=== PATIENT | female | born 1940 | race Caucasian/White ===

== ENCOUNTER 2021-08-18 14:40 | Inpatient (IN) | payer OTHER ==
[~2021-08-18] VITALS: Ht 152.4 cm; Wt 54.9 kg
[~2021-08-18 14:40] MED LIST: ASPIRIN EC325 MG PO; ASPIRIN LOW DOSE 81M PO; LIPITOR10 MG PO; LISINOPRIL-HCT1 EAC1 PO; ORENCIA 25250 MG/VIA IV; TRAMADOL 50 MG50 MG PO; VITAMIN D 5050000 I1 PO
[2021-08-18 14:47] VITALS: BP 184/46
[2021-08-18] MEDS ORDERED: LIPITOR10 MG PO (14:50)
[2021-08-18] MEDS ORDERED: ZESTRIL20 MG PO (14:50)
[2021-08-18] MEDS ORDERED: PROLIA60 MG/1 ML SUBQ (14:51)
[2021-08-18 17:02] LABS: ABSOLUTE LYMPHOCYTES 1.2 thou/uL (0.8-5.3); ABSOLUTE MONOCYTES 0.5 thou/uL (0.0-1.2); ABSOLUTE NEUTROPHILS 4.4 thou/uL (1.6-8.1); BASOPHILS 0.5 %; EOSINOPHILS 0.5 %; LYMPHOCYTES 19.9 %; MCH 26.5 pg (26.0-34.0); MCHC 33.3 g/dL (28.0-37.0); MCV 79.4 fL (80.0-100.0); MONOCYTES 7.4 %; MPV 8.1 fl. (7.2-11.1); NUCLEATED RBCS 0 /100WBC; PLATELET COUNT* 139 thou/uL (150-400); POLYS 71.7 %; RBC 4.91 mil/uL (4.20-5.00); RDW-CV 14.4 % (10.5-14.5); WBC 6.1 thou/uL (4.0-11.0)
[2021-08-18 17:14] LABS: CALCIUM 8.8 mg/dL (8.5-10.1); CREATININE 0.8 mg/dL (0.6-1.3); POTASSIUM 3.5 mmol/L (3.5-5.1)
[2021-08-18 17:30] LABS: ALBUMIN 3.8 g/dL (3.4-5.0); TOTAL BILIRUBIN 0.9 mg/dL (<0.1-1.0); TOTAL PROTEIN 7.7 g/dL (6.4-8.2)
[2021-08-18 21:00] VITALS: BP 229/84
[2021-08-19 01:00] VITALS: BP 177/59
[2021-08-19 05:00] VITALS: BP 179/57
[2021-08-19 06:20] LABS: HEMATOCRIT 36.7 % (37.0-47.0); HEMOGLOBIN 12.2 gm/dL (12.0-15.0); MCH 26.4 pg (26.0-34.0); MCHC 33.3 g/dL (28.0-37.0); MCV 79.4 fL (80.0-100.0); MPV 8.2 fl. (7.2-11.1); RBC 4.62 mil/uL (4.20-5.00); RDW-CV 14.2 % (10.5-14.5); WBC 4.3 thou/uL (4.0-11.0)
[2021-08-19 06:35] LABS: ALBUMIN 2.9 g/dL (3.4-5.0); CREATININE 0.8 mg/dL (0.6-1.3); POTASSIUM 3.7 mmol/L (3.5-5.1); TOTAL BILIRUBIN 0.7 mg/dL (<0.1-1.0); TOTAL PROTEIN 6.3 g/dL (6.4-8.2)
[2021-08-19 10:50] VITALS: BP 180/67
[2021-08-19 13:00] VITALS: BP 158/56
--- NOTE | 2021-08-19 13:45 | NUR ---
PT BROUGHT OVER FROM ER TO PREOP BAY E TO BOARD. PT MAY POSSIBLY HAVE SURGERY, [facility]SI HAS BEEN CONSULTED. PT IS AXOX4. PT DENIES PAIN AT TIME OF PRE OP CHECKLIST. DAUGHTER VENESSA ACCOMPANIED PT AND IS ABLE TO PROVIDE HISTORY. PT HAS ERYTHEMA NOTED TO HER RIGHT MIDDLE FINGER, IT IS SWOLLEN AND WARM, AND SHE IS UNABLE TO BEND THE FINGER AT ALL. PT HAS HX OF RA AND LUPUS, PER HER DAUGHTER, SHE HAS HAD SILICONE INJECTIONS IN HER HANDS FOR HER RA/LUPUS. PT INFORMED THAT WE WILL NEED TO KEEP HER NPO UNTIL NURSING FINDS OUT THE PLAN FOR SURGERY. CALL LIGHT WITHIN REACH. DAUGHTER AT BEDSIDE AND ATTENTIVE. WILL CONTIMUE TO MONITOR PT CLOSELY.
--- NOTE | 2021-08-19 14:22 | NUR ---
UPDATED DR. BLANC WITH [facility] RE: PT STATUS. ACCORDING TO DR. BLANC, PT WILL NEED TRANSFERRED TO A HAND SURGEON SOON POSSIBLE.
--- NOTE | 2021-08-19 15:05 | NUR ---
CM department received notification from Dr. Ghassan Yanez (ortho) that patient has an abscess and requires a hand surgeon. [facility] does not have a hand surgeon. Called the following hospitals to see if they could admit patient: [facility] ([place]) [phone] - not taking direct admits [facility] ([facility]) [phone] - no beds available [facility] [phone] - only hospital which has a hand surgeon is [facility] and they have no beds available. [facility] ([place]) at: [phone] - no beds available. [facility] ([place]) at: [phone] - Only have a hand surgeon at [facility] - no beds available. [facility] - - called and left message on their transfer line with return contact information. Waiting for a call back. [facility]: [phone] - per transfer team they do not have a hand surgeon.
--- NOTE | 2021-08-19 17:20 | NUR ---
PT TRANSFERRED UPSTAIRS TO ROOM 209. REPORT GIVEN TO DEVIKA ALMAGUER. DAUGHTER VENESSA ACCOMPANIED PT UPSTAIRS. PER DR. HANDY, HE IS GOING TO SEE PT UPSTAIRS AND DECIDE FURTHER TREATMENT. PT'S NURSE, ROSINA, NOTIFIED OF PLAN OF CARE.
[2021-08-19 20:00] VITALS: BP 202/99
[2021-08-20] VITALS: BP 136/47
[2021-08-20 04:08] LABS: HEMATOCRIT 35.9 % (37.0-47.0); MCH 26.5 pg (26.0-34.0); MCHC 33.5 g/dL (28.0-37.0); MCV 79.1 fL (80.0-100.0); MPV 7.9 fl. (7.2-11.1); RBC 4.54 mil/uL (4.20-5.00); RDW-CV 14.3 % (10.5-14.5); WBC 4.6 thou/uL (4.0-11.0)
[2021-08-20 04:28] LABS: ALBUMIN 2.7 g/dL (3.4-5.0); CREATININE 0.7 mg/dL (0.6-1.3); POTASSIUM 3.6 mmol/L (3.5-5.1); TOTAL BILIRUBIN 0.5 mg/dL (<0.1-1.0)
--- NOTE | 2021-08-20 05:27 | NUR ---
PATIENT SLEPT WELL DURING THIS SHIFT. PT UP AD MELODY TO BATHROOM. PT SALINE LOCKED. PT ON ROOM AIR. PT IS M/S STATUS. PT DENIES PAIN/NAUSEA. MIDDLE FINGER ON RT HAND WARM/SWOLLEN. PT DENIES NEEDS AT THIS TIME. WILL CONTINUE TO MONITOR.
[2021-08-20 08:00] VITALS: BP 158/64
--- NOTE | 2021-08-20 10:27 | NUR ---
Recieved call from [facility] stating that current physician would like to continue efforts to transfer patient. Physician would like to purse looking for plastics versus a hand surgeon. Called [facility] and [facility] and both are closed to transfers at this time. Advised SW to expand search further to find an accepting facility. Physician aware of efforts. A backup plan will need to be developed if tranfer is unsuccessful. Family aware of expanded search efforts. CM to continue to follow
--- NOTE | 2021-08-20 14:51 | NUR ---
UPDATE FOR TRANSFER, [facility]- ON HOLD FOR TRANSFER, [facility]- FOR [place] TRANSFER TEAM. [facility]- COMPLE[facility] HOLD[facility]- CLOSED FOR TRANSFER, [facility]- NO SURGEON LTC AND REHAB FACILITY, [facility]ED[facility], [facility]EDS, [facility]- WAITING LIST AT [place], [facility]- AT [place] ONLY CRITICAL PT.'S CM TO CONTINUE TO FOLLOW FOR SAFE D/C PLANNING.
[2021-08-20 16:00] VITALS: BP 177/69
[2021-08-20 22:00] VITALS: BP 188/77
[2021-08-21] VITALS (7 sets, daily range): BP systolic 117–180; BP diastolic 39–91
--- NOTE | 2021-08-21 06:46 | NUR ---
ASSUMED CARE AT 1920. ALERT AND ORIENTED. PLEASANT. PAIN MEDS GIVEN FOR RIGHT HAND/FINGER PAIN. UP AD MELODY. SALINE LOCK LFA. AT 2200, BP: 188/77, HR: 75. HYDRALAZINE GIVEN. PT SLEPT OFF AND ON. CALL LIGHT IN REACH.
[2021-08-21] MEDS ORDERED: DOXYCYCLINE 10100 MG PO (10:30)
[2021-08-21] MEDS ORDERED: NORVASC5 MG PO (10:30)
[2021-08-21] MEDS ORDERED: HYDROCODON-ACE1 EAC7 PO (10:30)
[2021-08-21] MEDS ORDERED: CEFDINIR300 MG PO (10:30)
--- NOTE | 2021-08-21 13:51 | NUR ---
PLAN FOR THE PT TO D/C HOME TODAY WITH SELF-CARE AND APPOINTMENT ARRANGED WITH HAND SURGEON TOMORROW (08/22/21) @ [address] HAUSER. NO OTHER CM D/C PLANNING NEEDS ANTICIPATED. CM WILL REMAIN AVAILABLE TO ASSIST AND FOLLOW NEEDED. [facility]THOPAED[facility] SPECIALIST (DR HAUSER) [address], [address] [place] [address] APPOINTMENT: 08/22/21 @ 0830. PT TO ARRIVE AT 0815
== END 2021-08-21 17:10 | disposition home or self-care (01) | DRG 558 ==
LOC: M.ERS 14:40 → M.2W 16:24 → M.TBA-ER 16:24 → M.TBA-CV 08-19 15:56 → M.2W 08-19 17:15
PROVIDERS: Physician Assistant; ADMIT Internal Medicine; ATTEND Internal Medicine
DX: M65.9 Synovitis and tenosynovitis, unspecified (principal); L03.011 Cellulitis of right finger; I10 Essential (primary) hypertension; Z90.49 Acquired absence of other specified parts of digestive tract; Z20.822 Contact with and (suspected) exposure to COVID-19; M06.9 Rheumatoid arthritis, unspecified